=== PATIENT | male | born 1995 | race African-American/Black ===

== ENCOUNTER 2022-02-11 23:48 | Emergency (ER) | payer SELFPAY ==
[2022-02-12] MEDS ORDERED: Bupivacaine 0.5% 10 ML VIAL ONE (00:05)
[2022-02-12] MEDS ORDERED: Penicillin V Potassium 250 MG TAB ONE (00:14)
== END 2022-02-12 00:15 | disposition home or self-care (01) ==
LOC: BURERS 23:48
DX: K04.7 Periapical abscess without sinus (principal); F17.210 Nicotine dependence, cigarettes, uncomplicated
CPT/HCPCS: 64400; J3490

== ENCOUNTER 2024-11-20 11:01 | Emergency (ER) | payer OTHER ==
[2024-11-20] MEDS ORDERED: Amoxicillin/Potassium Clav 875 MG TAB ONE (12:06)
== END 2024-11-20 12:09 | disposition home or self-care (01) ==
LOC: BURERS 11:01
DX: K04.7 Periapical abscess without sinus (principal); I10 Essential (primary) hypertension; F17.290 Nicotine dependence, other tobacco product, uncomplicated
CPT/HCPCS: 96372; 99282; J1885

== ENCOUNTER 2025-01-02 14:53 | Emergency (ER) | payer OTHER | END 2025-01-02 16:18 | disposition home or self-care (01) | LOC: BURERS 14:53 | DX: S93.492A Sprain of other ligament of left ankle, initial encounter (principal); M76.62 Achilles tendinitis, left leg; I10 Essential (primary) hypertension; E66.9 Obesity, unspecified; F17.210 Nicotine dependence, cigarettes, uncomplicated; F17.290 Nicotine dependence, other tobacco product, uncomplicated; X50.1XXA Overexertion from prolonged static or awkward postures, initial encounter; Y92.512 Supermarket, store or market as the place of occurrence of the external cause | CPT/HCPCS: 99283 ==